=== PATIENT | male | born 1955 | race Two or more races ===

== ENCOUNTER 2022-07-17 08:29 | Inpatient (IN) | payer MEDICARE, OTHER ==
[~2022-07-17] VITALS: Ht 172.7 cm; Wt 81.7 kg
[2022-07-17] MEDS ORDERED: ASPirin 81 mg TAB PO ONE (09:15)
[2022-07-17] MEDS ORDERED: methylPREDNISolone SOD SUCC 125 MG/2 ML VL IV ONE (09:15)
[2022-07-17 09:35] LABS: Basophils # (auto) 0.1 10 ^3/uL (0-0.2); Basophils % (auto) 0.6 % (0.0-2.0); Eosinophils # (auto) 0.2 10 ^3/uL (0-0.8); Eosinophils % (auto) 2.1 % (0.0-7.0); Hematocrit 39.3 % (41.0-53.0); Lymphocytes # (auto) 1.4 10 ^3/uL (0.4-5.4); Lymphocytes % (auto) 12.9 % (10.0-50.0); Mean Corpuscular Hemoglobin 33.9 pg (28.0-32.0); Mean Corpuscular Hgb Conc. 35.5 g/dL (32.0-36.0); Mean Corpuscular Volume 95.3 fL (80.0-100.0); Monocytes # (auto) 0.9 10 ^3/uL (0-1.3); Monocytes % (auto) 8.1 % (0.0-12.0); Neutrophils # (auto) 8.1 10 ^3/uL (1.6-8.6); Neutrophils % (auto) 76.3 % (37.0-80.0); Red Blood Cells 4.12 10^6/uL (4.5-5.90); Red Cell Distribution Width 13.5 % (11.8-14.3); White Blood Cell 10.6 10^3/uL (4.4-10.8)
[2022-07-17 09:40] LABS: Urine Bacteria MOD /hpf (None Seen); Urine Budding Yeast MANY /hpf (None Seen); Urine Mucus FEW (None Seen); Urine WBC 1400 /hpf (0 - 3); Urine WBC Clumps PRESENT /hpf (None Seen)
[2022-07-17 09:42] LABS: Urine Blood 3+ /uL (Negative); Urine Specific Gravity 1.015 (1.001-1.035)
[2022-07-17 09:42] LABS: Albumin 3.2 g/dL (3.4-5.0); Calcium 9.6 mg/dL (8.5-10.1); Magnesium 2.1 mg/dL (1.6-2.6); Potassium 3.9 mmol/L (3.5-5.1)
[2022-07-17 09:44] LABS: Total Protein 7.3 g/dL (6.4-8.2)
[2022-07-17] MEDS ORDERED: cefTRIAXone 1GM/50ML D5W 50 ML IV ONE (10:15)
[2022-07-17] MEDS ORDERED: HYDROcodone-ACET 5/325MG TAB PO PRN (11:30)
[2022-07-17] MEDS ORDERED: MORPHINE SULFATE INJ 2 MG/ml SYRG IV PRN (11:30)
[2022-07-17] MEDS ORDERED: InsuLIN REG 1unit/0.01ml Soln (100units/ml) SC SCH (11:30)
[2022-07-17] MEDS ORDERED: DOCUSATE SOD 100 MG CAP PO PRN (11:30)
[2022-07-17] MEDS ORDERED: DEXTROSE (50%) 50ML SYRG IV PRN ×2 (11:30→14:45)
[2022-07-17] MEDS ORDERED: ACCU-CHEK COMFORT CURVE STRIP VI SCH (11:30)
[2022-07-17] MEDS ORDERED: NITROGLYCERIN 0.4 MG SL TAB SL PRN (11:30)
[2022-07-17] MEDS ORDERED: ONDANSETRON HCL 4 MG/2 ML VIAL IV PRN (11:30)
[2022-07-17] MEDS ORDERED: ALBUTEROL SULF 2.5 MG/0.5ML(0.5%) NEB SOLN NEB PRN (12:45)
[2022-07-17] MEDS ORDERED: IPRATROPIUM BROM 0.5 MG/2.5ML INH SOL NEB PRN (12:45)
[2022-07-17] MEDS ORDERED: IOHEXOL 350 MG/ML 100ML IJ ONE (14:41)
[2022-07-17] MEDS: ACCU-CHEK COMFORT CURVE STRIP VI SCH ×2 (20:11→22:00)
[2022-07-17] MEDS: methylPREDNISolone SOD SUCC 125 MG/2 ML VL IV SCH ×2 (20:24→22:00)
[2022-07-17] MEDS: InsuLIN REG 1unit/0.01ml Soln (100units/ml) SC SCH ×2 (20:24→22:00)
[2022-07-17] MEDS: ENOXAPARIN SOD 100 MG/1 ML SYRINGE SC SCH (23:02)
[2022-07-18] VITALS (8 sets, daily range): BP systolic 103–130; BP diastolic 67–90
[2022-07-18] MEDS ORDERED: AMIODARONE HCL (50 MG/ ML) 3 ML VIAL IV ONE (02:14)
[2022-07-18] MEDS ORDERED: MIDAZOLAM HCL 2MG/2ML 2ml VIAL (1mg/ml) ONE ×2 (02:14→19:26)
[2022-07-18] MEDS ORDERED: AMIODARONE HCL 150 MG in D5W 5% 100 ML IV ONE (02:15)
[2022-07-18] MEDS ORDERED: MAGNESIUM SULFATE 1GM/100ML 200 ML IV ONE (02:18)
[2022-07-18] MEDS ORDERED: MIDAZOLAM HCL 2MG/2ML 2ml VIAL (1mg/ml) IV PRN (02:30)
[2022-07-18] MEDS ORDERED: AMIODARONE 450mg/250ml AE 250 ML IV SCH ×2 (02:30→08:30)
[2022-07-18 05:13] LABS: Basophils # (auto) 0 10 ^3/uL (0-0.2); Basophils % (auto) 0.1 % (0.0-2.0); Eosinophils # (auto) 0 10 ^3/uL (0-0.8); Hematocrit 35.7 % (41.0-53.0); Hemoglobin 12.5 g/dL (13.5-17.5); Lymphocytes # (auto) 0.4 10 ^3/uL (0.4-5.4); Lymphocytes % (auto) 8.7 % (10.0-50.0); Mean Corpuscular Hemoglobin 33.2 pg (28.0-32.0); Mean Corpuscular Volume 94.8 fL (80.0-100.0); Monocytes # (auto) 0.1 10 ^3/uL (0-1.3); Monocytes % (auto) 1.7 % (0.0-12.0); Neutrophils # (auto) 4.3 10 ^3/uL (1.6-8.6); Neutrophils % (auto) 89.5 % (37.0-80.0); Nucleated Red Blood Cells % 0.1 %; Red Blood Cells 3.76 10^6/uL (4.5-5.90); Red Cell Distribution Width 13.5 % (11.8-14.3); White Blood Cell 4.8 10^3/uL (4.4-10.8)
[2022-07-18 05:31] LABS: Albumin 2.9 g/dL (3.4-5.0); Calcium 9.4 mg/dL (8.5-10.1); Potassium 3.9 mmol/L (3.5-5.1)
[2022-07-18 05:33] LABS: BUN/Creatinine Ratio 21.6
[2022-07-18 05:35] LABS: Bilirubin, Total 0.8 mg/dL (0.2-1.0); Total Protein 7.2 g/dL (6.4-8.2)
[2022-07-18] MEDS: MAGNESIUM SULFATE 1GM/100ML 100 ML IV SCH (07:01)
[2022-07-18] MEDS: InsuLIN REG 1unit/0.01ml Soln (100units/ml) SC SCH ×4 (07:09→21:59)
[2022-07-18] MEDS: methylPREDNISolone SOD SUCC 125 MG/2 ML VL IV SCH ×2 (07:10→15:00)
[2022-07-18] MEDS: ACCU-CHEK COMFORT CURVE STRIP VI SCH ×4 (07:11→21:59)
[2022-07-18] MEDS ORDERED: AMIODARONE HCL 200 MG TAB PO ONE (09:15)
[2022-07-18] MEDS ORDERED: ADENOSINE 82 MG in GIVE UN-DILUTED 0 ML IV ONE (09:45)
[2022-07-18] MEDS ORDERED: METOPROLOL SUCCINATE XL 50 MG TAB PO ONE (10:30)
[2022-07-18] MEDS: ENOXAPARIN SOD 100 MG/1 ML SYRINGE SC SCH ×2 (11:00→12:16)
[2022-07-18] MEDS: cefTRIAXone 1GM/50ML D5W 50 ML IV SCH ×2 (11:00→12:16)
[2022-07-18] MEDS: ASPirin 81 mg TAB PO SCH (12:21)
[2022-07-18 13:42] LABS: Free T4 (Free Thyroxine) 1.13 ng/dL (0.89-1.76); T3 Total 0.68 ng/mL (0.60-1.81)
[2022-07-18 15:35] LABS: Cholesterol 233 mg/dL (< 200); HDL Cholesterol 41 mg/dL (40-59); LDL Cholesterol 180 mg/dL (< 100); Triglycerides 85 mg/dL (< 150)
[2022-07-18] MEDS: FUROSEMIDE 20 MG/2 ML VIAL IV SCH (16:36)
[2022-07-18] MEDS: TAMSULOSIN HYDROCHLORIDE 0.4 MG CAP PO SCH (18:00)
[2022-07-18] MEDS ORDERED: LIDOCAINE 2%HCL (LOCAL ANESTH.) INJ 10ml MDV ONE (19:21)
[2022-07-18] MEDS ORDERED: IODIXANOL 320MG/ML 100ML BTL IV ONE (19:21)
[2022-07-18] MEDS ORDERED: HEPARIN SODIUM (PORCINE) 5000 UNITS/ML 1ML VIAL ONE (19:26)
[2022-07-18] MEDS ORDERED: VERAPAMIL 2.5MG/ML INJ 2ML VIAL IV ONE (19:26)
[2022-07-18] MEDS ORDERED: fentaNYL CITRATE 100 MCG/2 ML VL ONE (19:26)
[2022-07-18] MEDS ORDERED: ANGIOMAX 250 MG VIAL IV ONE (19:26)
[2022-07-18] MEDS ORDERED: SODIUM CHL 0.9% 50 ML ONE (19:27)
[2022-07-18] MEDS ORDERED: TICAGRELOR 90 MG TAB ONE (20:08)
[2022-07-18] MEDS ORDERED: SODIUM CHLORIDE 0.9% 1,000 ML IV SCH (20:30)
[2022-07-18] MEDS: AMIODARONE HCL 200 MG TAB PO SCH (21:51)
[2022-07-18] MEDS: DOXYCYCLINE 100 MG TAB/CAP PO SCH (21:58)
[2022-07-18] MEDS ORDERED: ATORVASTATIN 20 MG TAB PO SCH (22:00)
[2022-07-18] MEDS: SODIUM CHLOR 0.9% PF (SALINE LOCK) 10ML VIAL/SYR IV SCH (22:17)
[2022-07-18 22:41] LABS: INR 1.36 (0.9-1.15)
[2022-07-18 22:54] LABS: Partial Thromboplastin Time 78.7 sec (24.6-33.4)
[2022-07-19 05:00] VITALS: BP 111/59
[2022-07-19 05:32] LABS: Basophils # (auto) 0 10 ^3/uL (0-0.2); Basophils % (auto) 0.1 % (0.0-2.0); Eosinophils # (auto) 0 10 ^3/uL (0-0.8); Hemoglobin 11.4 g/dL (13.5-17.5); Lymphocytes # (auto) 0.6 10 ^3/uL (0.4-5.4); Lymphocytes % (auto) 3.9 % (10.0-50.0); Mean Corpuscular Hemoglobin 32.8 pg (28.0-32.0); Mean Corpuscular Hgb Conc. 34.5 g/dL (32.0-36.0); Mean Corpuscular Volume 95.1 fL (80.0-100.0); Monocytes # (auto) 0.7 10 ^3/uL (0-1.3); Monocytes % (auto) 4.7 % (0.0-12.0); Neutrophils % (auto) 91.3 % (37.0-80.0); Red Blood Cells 3.47 10^6/uL (4.5-5.90); Red Cell Distribution Width 13.7 % (11.8-14.3); White Blood Cell 14.2 10^3/uL (4.4-10.8)
[2022-07-19] MEDS: SODIUM CHLOR 0.9% PF (SALINE LOCK) 10ML VIAL/SYR IV SCH ×3 (05:37→23:07)
[2022-07-19 05:45] LABS: INR 1.01 (0.9-1.15); Partial Thromboplastin Time 28.7 sec (24.6-33.4)
[2022-07-19 05:48] LABS: Potassium 3.7 mmol/L (3.5-5.1)
[2022-07-19 05:58] LABS: BUN/Creatinine Ratio 26.1; Calcium 9.5 mg/dL (8.5-10.1)
[2022-07-19] MEDS: InsuLIN REG 1unit/0.01ml Soln (100units/ml) SC SCH ×4 (06:12→21:39)
[2022-07-19] MEDS: ACCU-CHEK COMFORT CURVE STRIP VI SCH ×4 (06:24→21:36)
[2022-07-19 09:00] VITALS: BP 129/72
[2022-07-19] MEDS: DOXYCYCLINE 100 MG TAB/CAP PO SCH ×2 (09:13→21:51)
[2022-07-19] MEDS: ASPirin 81 mg TAB PO SCH (09:13)
[2022-07-19] MEDS: AMIODARONE HCL 200 MG TAB PO SCH ×2 (09:13→21:52)
[2022-07-19] MEDS: METOPROLOL SUCCINATE XL 50 MG TAB PO SCH (09:15)
[2022-07-19] MEDS: FUROSEMIDE 20 MG/2 ML VIAL IV SCH (09:16)
[2022-07-19] MEDS: TICAGRELOR 90 MG TAB PO SCH ×2 (09:16→21:51)
[2022-07-19] MEDS: cefTRIAXone 1GM/50ML D5W 50 ML IV SCH (09:16)
[2022-07-19] MEDS ORDERED: ERGOCALCIFEROL 50,000 UNIT(1.25MG) CAP PO SCH (10:00)
[2022-07-19] MEDS ORDERED: ENOXAPARIN SOD 100 MG/1 ML SYRINGE SC SCH (10:00)
[2022-07-19 13:00] VITALS: BP 115/74
[2022-07-19] MEDS ORDERED: ERTAPENEM SOD INJ 1 GM in SODIUM CHL 0.9% 50 ML IV ONE (13:00)
[2022-07-19 16:37] VITALS: BP 125/82
[2022-07-19] MEDS: TAMSULOSIN HYDROCHLORIDE 0.4 MG CAP PO SCH (17:57)
[2022-07-19] MEDS: APIXABAN 5 MG TAB PO SCH (21:51)
[2022-07-19 22:00] VITALS: BP 108/58
[2022-07-20 05:00] VITALS: BP 116/65
[2022-07-20] MEDS: SODIUM CHLOR 0.9% PF (SALINE LOCK) 10ML VIAL/SYR IV SCH ×2 (06:13→14:39)
[2022-07-20] MEDS: ACCU-CHEK COMFORT CURVE STRIP VI SCH ×3 (06:13→18:07)
[2022-07-20 06:15] LABS: Basophils # (auto) 0 10 ^3/uL (0-0.2); Basophils % (auto) 0.2 % (0.0-2.0); Eosinophils # (auto) 0 10 ^3/uL (0-0.8); Eosinophils % (auto) 0.2 % (0.0-7.0); Hematocrit 34.6 % (41.0-53.0); Hemoglobin 12.3 g/dL (13.5-17.5); Lymphocytes # (auto) 1.3 10 ^3/uL (0.4-5.4); Lymphocytes % (auto) 14.3 % (10.0-50.0); Mean Corpuscular Hemoglobin 34.2 pg (28.0-32.0); Mean Corpuscular Hgb Conc. 35.4 g/dL (32.0-36.0); Mean Corpuscular Volume 96.6 fL (80.0-100.0); Monocytes # (auto) 0.8 10 ^3/uL (0-1.3); Monocytes % (auto) 9.2 % (0.0-12.0); Neutrophils # (auto) 6.8 10 ^3/uL (1.6-8.6); Neutrophils % (auto) 76.1 % (37.0-80.0); Red Blood Cells 3.58 10^6/uL (4.5-5.90); Red Cell Distribution Width 13.7 % (11.8-14.3); White Blood Cell 8.9 10^3/uL (4.4-10.8)
[2022-07-20] MEDS: InsuLIN REG 1unit/0.01ml Soln (100units/ml) SC SCH ×3 (06:23→17:00)
[2022-07-20 06:34] LABS: BUN/Creatinine Ratio 29.5; Calcium 9.1 mg/dL (8.5-10.1); Potassium 3.7 mmol/L (3.5-5.1)
[2022-07-20 09:00] VITALS: BP 114/53
[2022-07-20] MEDS: cefTRIAXone 1GM/50ML D5W 50 ML IV SCH (09:45)
[2022-07-20] MEDS: APIXABAN 5 MG TAB PO SCH (09:46)
[2022-07-20] MEDS: DOXYCYCLINE 100 MG TAB/CAP PO SCH (09:46)
[2022-07-20] MEDS: TICAGRELOR 90 MG TAB PO SCH (09:46)
[2022-07-20] MEDS: AMIODARONE HCL 200 MG TAB PO SCH (09:46)
[2022-07-20] MEDS: ASPirin 81 mg TAB PO SCH (09:46)
[2022-07-20] MEDS: METOPROLOL SUCCINATE XL 50 MG TAB PO SCH (09:47)
[2022-07-20] MEDS: FUROSEMIDE 20 MG/2 ML VIAL IV SCH (09:48)
[2022-07-20] MEDS ORDERED: ERTAPENEM SOD INJ 1 GM in SODIUM CHL 0.9% 50 ML IV SCH (10:00)
[2022-07-20 13:00] VITALS: BP 108/62
== END 2022-07-20 18:00 | disposition short-term general hospital (02) | DRG 246 ==
LOC: ER 08:29 → TELE 11:25 → TELE-EAST 07-18 10:19
PROVIDERS: ADMIT Nurse Practitioner Family; ATTEND Internal Medicine
PROC: 5A2204Z Restoration of Cardiac Rhythm, Single (ICD-10-PCS; 2022-07-17)
PROC: 027034Z Dilation of Coronary Artery, One Artery with Drug-eluting Intraluminal Device, Percutaneous Approach (ICD-10-PCS; principal; 2022-07-18)
PROC: 4A023N7 Measurement of Cardiac Sampling and Pressure, Left Heart, Percutaneous Approach (ICD-10-PCS; 2022-07-18)
PROC: B211YZZ Fluoroscopy of Multiple Coronary Arteries using Other Contrast (ICD-10-PCS; 2022-07-18)
PROC: B215YZZ Fluoroscopy of Left Heart using Other Contrast (ICD-10-PCS; 2022-07-18)
PROC: 4A033BC Measurement of Arterial Pressure, Coronary, Percutaneous Approach (ICD-10-PCS; 2022-07-18)
DX: I11.0 Hypertensive heart disease with heart failure (principal); I50.41 Acute combined systolic (congestive) and diastolic (congestive) heart failure; J96.00 Acute respiratory failure, unspecified whether with hypoxia or hypercapnia; I47.20 Ventricular tachycardia, unspecified; J45.901 Unspecified asthma with (acute) exacerbation; N13.6 Pyonephrosis; Z16.12 Extended spectrum beta lactamase (ESBL) resistance; E04.1 Nontoxic single thyroid nodule; E11.9 Type 2 diabetes mellitus without complications; R91.1 Solitary pulmonary nodule; Z20.822 Contact with and (suspected) exposure to COVID-19; I25.10 Atherosclerotic heart disease of native coronary artery without angina pectoris; E66.9 Obesity, unspecified; B96.20 Unspecified Escherichia coli [E. coli] as the cause of diseases classified elsewhere; E78.5 Hyperlipidemia, unspecified; I48.91 Unspecified atrial fibrillation; Z83.3 Family history of diabetes mellitus; Z87.440 Personal history of urinary (tract) infections; Z87.891 Personal history of nicotine dependence; Z68.27 Body mass index [BMI] 27.0-27.9, adult
CPT/HCPCS: 36415; 71046; 71275; 76536; 76775; 78452; 80048; 80053; 80061; 81001; 82306; 82962; 83036; 83605; 83735; 83880; 84154; 84439; 84443; 84480; 84484; 85025; 85379; 85610; 85730; 87040; 87086; 87088; 87186; 87426; 93005; 93017; 93306; 99152; 99153; C1874; G0378; J0153; J0696; J1335; J1815; J2001; J2250; J2405; J7060; Q9967

== ENCOUNTER 2022-10-17 14:27 | Emergency (ER) | payer MEDICARE, OTHER ==
[~2022-10-17] VITALS: Ht 172.7 cm; Wt 89.7 kg
[2022-10-17 16:03] LABS: Urine Bacteria FEW /hpf (None Seen); Urine Blood 1+ /uL (Negative); Urine Mucus FEW (None Seen); Urine Specific Gravity 1.015 (1.001-1.035); Urine WBC 42 /hpf (0 - 3)
[2022-10-17 16:06] LABS: BUN/Creatinine Ratio 17.3; Calcium 9.5 mg/dL (8.5-10.1); Potassium 3.3 mmol/L (3.5-5.1)
[2022-10-17 16:08] LABS: Bilirubin, Total 0.8 mg/dL (0.2-1.0); Total Protein 7.1 g/dL (6.4-8.2)
[2022-10-17 16:20] LABS: Hematocrit 45.9 % (41.0-53.0); Hemoglobin 15.6 g/dL (13.5-17.5); Mean Corpuscular Hemoglobin 32.9 pg (28.0-32.0); Mean Corpuscular Hgb Conc. 34.1 g/dL (32.0-36.0); Mean Corpuscular Volume 96.5 fL (80.0-100.0); Red Blood Cells 4.75 10^6/uL (4.5-5.90); Red Cell Distribution Width 13.3 % (11.8-14.3); White Blood Cell 10.9 10^3/uL (4.4-10.8)
[2022-10-17 16:23] LABS: Basophils % (manual) 0 (0.0-2.0); Blast Cells 0; Metamyelocytes % 0; Promyelocytes % 0; Reactive Lymphocytes 0
[2022-10-17 16:43] LABS: Band Neutrophils % (manual) 16; Eosinophils % (manual) 1 (0-7); Lymphocytes % (manual) 4 (10.0-50.0); Monocytes % (manual) 1 (0-12); Myelocytes % 1
[2022-10-17] MEDS ORDERED: POTASSIUM EFFERVESENT TAB 25 MEQ PO ONE (19:45)
[2022-10-17] MEDS ORDERED: LACTATED RINGER'S 1,000 ML IV ONE (20:00)
[2022-10-17 20:34] VITALS: BP 102/57
== END 2022-10-17 20:38 | disposition home or self-care (01) ==
LOC: ER 14:33
DX: R00.2 Palpitations (principal); M79.605 Pain in left leg; M79.604 Pain in right leg; M54.50 Low back pain, unspecified; R07.89 Other chest pain; I10 Essential (primary) hypertension; I25.10 Atherosclerotic heart disease of native coronary artery without angina pectoris; E11.9 Type 2 diabetes mellitus without complications; E78.5 Hyperlipidemia, unspecified
CPT/HCPCS: 36415; 71045; 80053; 81001; 83880; 84484; 85007; 85027; 93005; 96360; 99285; J7120

== ENCOUNTER 2023-08-10 06:18 | Day surgery (SDC) | payer OTHER, MEDICAID ==
[~2023-08-10] VITALS: Ht 172.7 cm; Wt 89.8 kg
[2023-08-10] MEDS ORDERED: fentaNYL CITRATE 100 MCG/2 ML VL IV STA (07:43)
[2023-08-10] MEDS ORDERED: LIDOCAINE VISCOUS 2% 15ML UD MT PRN (07:45)
[2023-08-10] MEDS ORDERED: FLUMAZENIL 0.1 MG/ML INJ 10ML MDV IV ONE (07:45)
[2023-08-10] MEDS ORDERED: NALOXONE HCL 0.4 MG/ML VIAL IV ONE (07:45)
[2023-08-10] MEDS ORDERED: diphenhdrAMINE HCL 50 MG/1 ML VL IV ONE (07:45)
[2023-08-10] MEDS ORDERED: MIDAZOLAM HCL 2MG/2ML 2ml VIAL (1mg/ml) IV ONE (07:45)
[2023-08-10 08:12] LABS: Basophils # (auto) 0 10 ^3/uL (0-0.2); Eosinophils # (auto) 0.2 10 ^3/uL (0-0.8); Eosinophils % (auto) 3.8 % (0.0-7.0); Lymphocytes # (auto) 1.1 10 ^3/uL (0.4-5.4); Mean Corpuscular Hemoglobin 34.3 pg (28.0-32.0); Monocytes # (auto) 0.6 10 ^3/uL (0-1.3); Nucleated Red Blood Cells % 0.2 %
[2023-08-10 08:14] LABS: Basophils % (auto) 0.6 % (0.0-2.0); Hematocrit 47.1 % (41.0-53.0); Lymphocytes % (auto) 18.4 % (10.0-50.0); Mean Corpuscular Hgb Conc. 33.9 g/dL (32.0-36.0); Mean Corpuscular Volume 101.2 fL (80.0-100.0); Monocytes % (auto) 10.5 % (0.0-12.0); Neutrophils # (auto) 3.9 10 ^3/uL (1.6-8.6); Neutrophils % (auto) 66.7 % (37.0-80.0); Red Blood Cells 4.65 10^6/uL (4.5-5.90); Red Cell Distribution Width 13.7 % (11.8-14.3); White Blood Cell 5.9 10^3/uL (4.4-10.8)
[2023-08-10 08:26] LABS: INR 1.04 (0.9-1.15); Partial Thromboplastin Time 30.9 SEC (24.5-34.5); Prothrombin Time 10.9 sec (9.3-11.8)
[2023-08-10 08:41] LABS: Chloride 105 mmol/L (98-107); Sodium 136 mmol/L (136-145)
[2023-08-10 08:42] LABS: Anion Gap 6 (5-15); Carbon Dioxide 25 mmol/L (20-30)
[2023-08-10 08:43] LABS: Calcium 9.9 mg/dL (8.5-10.1)
[2023-08-10 08:48] LABS: BUN/Creatinine Ratio 17.5 (10.0-20.0); Blood Urea Nitrogen 20 mg/dL (9-23); Glucose 109 mg/dL (74-106)
[2023-08-10 09:08] VITALS: BP 122/86; PULSE 61; RESP 12; O2SAT 98
[2023-08-10 09:23] VITALS: PULSE 57; RESP 12; O2SAT 97
[2023-08-10 09:35] VITALS: BP 114/71; PULSE 56; RESP 13; O2SAT 96
[2023-08-10 09:55] VITALS: BP 107/66; PULSE 56; RESP 13; O2SAT 91
[2023-08-10 10:10] VITALS: BP 113/70; PULSE 57; RESP 13; O2SAT 97
[2023-08-10 10:25] VITALS: BP 111/70; PULSE 56; RESP 14; O2SAT 98
== END 2023-08-10 10:57 | disposition home or self-care (01) ==
LOC: CATH 06:18
PROVIDERS: ATTEND Internal Medicine
DX: I48.91 Unspecified atrial fibrillation (principal); I08.0 Rheumatic disorders of both mitral and aortic valves
CPT/HCPCS: 36415; 80048; 85025; 85610; 85730; 92960; 93005; 93312; J1200; J2250; J3010; J7030; 99152

== ENCOUNTER 2024-03-09 17:14 | Emergency (ER) | payer MEDICAID, OTHER ==
[~2024-03-09] VITALS: Ht 172.7 cm; Wt 91.0 kg
[2024-03-09 17:35] VITALS: BP 122/94; PULSE 101; RESP 18; O2SAT 97
[2024-03-09 18:35] LABS: COVID19 ANTIGEN SOFIA FIA NEGATIVE (NEGATIVE); Rapid Influenza A Negative (Negative); Rapid Influenza B Negative (Negative)
[2024-03-09 21:19] VITALS: TEMP 98.5
[2024-03-09] MEDS ORDERED: ACET500T58 PO (21:22)
[2024-03-09] MEDS ORDERED: PRED20TA2 PO (21:22)
[2024-03-09] MEDS ORDERED: AZIT-43 PO (21:22)
== END 2024-03-09 21:40 | disposition home or self-care (01) ==
LOC: ER 17:14
DX: J20.9 Acute bronchitis, unspecified (principal); I25.10 Atherosclerotic heart disease of native coronary artery without angina pectoris; E11.9 Type 2 diabetes mellitus without complications; E78.5 Hyperlipidemia, unspecified; I10 Essential (primary) hypertension; Z20.822 Contact with and (suspected) exposure to COVID-19; Z98.61 Coronary angioplasty status
CPT/HCPCS: 36415; 71046; 82962; 87426; 87804

== ENCOUNTER 2025-06-20 12:36 | Emergency (ER) | payer MEDICARE, OTHER ==
[~2025-06-20] VITALS: Ht 170.2 cm; Wt 80.3 kg
[~2025-06-20 12:36] MED LIST: ACET500T58 PO; AZIT-43 PO; PRED20TA2 PO
--- NOTE | 2025-06-20 14:17 | ED.PDOC ---
Back pain HPI HPI Comments 70-YEAR-OLD MALE PRESENTS TO THE ER WITH A RIGHT-SIDED RIB PAIN FOLLOWING A FALL AT WORK. HE EXPERIENCES RIGHT-SIDED RIB PAIN THAT WORSENS WITH MOVEMENTS SUCH TURNING IN BED OR GETTING UP. THE PAIN BEGINS AFTER HE SLIPPED FROM A STEP AND FELL APPROXIMATELY 1 L AT WORK. INITIALLY, HE FELT VERY TIRED AND UNABLE TO STAND UP, BUT HIS CONDITION HAS NOT IMPROVED SINCE THEN. HAS NOT TAKEN ANY SPECIFIC MEDICATION FOR THE PAIN, ALTHOUGH HE HAS TRIED TYLENOL WITHOUT RELIEF. HE MENTIONS ON HAVING MEDICATIONS FOR DIABETES, PROSTATE ISSUES, AND HIS CONDITIONS, BUT DOES NOT SPECIFY THE NAMES OR DOSAGES. DENIES LOSS OF CONSCIOUSNESS OR VOMITING. NO HISTORY OF OSTEOPOROSIS. DENIES ANY OTHER SYMPTOMS AT THIS TIME. Chief Complaint: Fall Injury Time Seen by MD: 14:15 Primary Care Provider: JEFFREY Fernando Notes: Nurses Notes, Medications, Allergies Allergies: Coded Allergies: NO KNOWN ALLERGIES (Unverified , 07/17/22) Home Meds Active Scripts Acetaminophen (Acetaminophen) 500 Mg Tab, 500 MG PO Q4HPRN, #30 TAB 0 Refills Prov:PAUL PEREZ 03/09/24 Prednisone (Prednisone) 20 Mg Tab, 20 MG PO BID for 5 Days, #10 TAB 0 Refills Prov:PAUL PEREZ 03/09/24 Azithromycin (Azithromycin) 250 Mg Tab, 250 MG PO DAILY MDD 500 for 5 Days, #6 TAB 0 Refills 2 TABLETS ORALLY ON DAY ONE, THEN 1 TABLET ORALLY DAILY FOR 4 DAYS Prov:PAUL PEREZ 03/09/24 Information Source: Patient Mode of Arrival: Ambulatory Timing: Hours Duration: Since onset Severity: Moderate Prehospital treatment: None Quality: Aching Onset: Fall Circumstance: Work Related History of: None Associated signs and symptoms: None Past Medical History PAST MEDICAL HISTORY: CAD, DM, High Lipids, HTN Surgical History: Hernia Repair, PTCA Family History Family History: Reviewed,noncontributory to illness, Unknown Social History Smoker: Non-Smoker Alcohol: Denies ETOH Use Drugs: Denies Drug Use Lives In: Home Constitutional: denies: chills, diaphoresis, fatigue, fever, malaise, sweats, weakness, others EENTM: denies: blurred vision, double vision, ear bleeding, ear discharge, ear drainage, ear pain, ear ringing, eye pain, eye redness, hearing loss, mouth pain, mouth swelling, nasal discharge, nose bleeding, nose congestion, nose hakeem n, photophobia, tearing, throat pain, throat swelling, voice changes, others Respiratory: denies: cough, hemoptysis, orthopnea, SOB at rest, shortness of breath, SOB with excertion, stridor, wheezing, others Cardiovascular: denies: chest pain, dizzy spells, diaphoresis, Dyspnea on exertion, edema, irregular heart beat, left arm pain, lightheadedness, palpitations, PND, syncope, others Gastrointestinal: denies: abdomen distended, abdominal pain, blood streaked bowels, constipated, diarrhea, dysphagia, difficulty swallowing, hematemesis, melena, nausea, poor appetite, poor fluid intake, rectal bleeding, rectal pain, vomiting, others Genitourinary: denies: burning, dysuria, flank pain, frequency, hematuria, incontinence, penile discharge, penile sore, pain, testicle pain, testicle swelling, urgency, others Neurological: denies: dizziness, fainting, headache, left sided numbness, left sided weakness, numbness, paresthesia, pre-existing deficit, right sided numbness, right sided weakness, seizure, speech problems, tingling, tremors, weakness, others Musculoskeletal: reports: others (RIGHT-SIDED RIB PAIN S/P FALL); denies: back pain, gout, joint pain, joint swelling, muscle pain, muscle stiffness, neck pain Integumetry: denies: bruises, change in color, change in hair/nails, dryness, laceration, lesions, lumps, rash, wounds, others Allergic/Immunocompromised: denies: Difficulty Healing, Frequent Infections, Hives, Itching, others Hematologic/Lymphatic: denies: anemia, blood clots, easy bleeding, easy bruising, swollen glands, others Endocrine: denies: excessive hunger, excessive sweating, excessive thirst, excessive urination, flushing, intolerance to cold, intolerance to heat, unexplained weight gain, unexplained weight loss, others Psychiatric: denies: anxiety, bipolar disorder, depression, hopeless, panic disorder, schizophrenia, sleepless, suicidal, others All Other Systems: Reviewed and Negative Physical Exam Exam Comments R RIB: NO CONTUSION General Appearance: No Apparent Distress, Normal HEENT: Normal ENT Inspection, Pharynx Normal, TMs Normal Neck: Full Range of Motion, Non-Tender, Normal, Normal Inspection Respiratory: Chest Non-Tender, Lungs Clear, No Accessory Muscle Use, No Respiratory Distress, Normal Breath Sounds Cardiovascular: No Edema, No JVD, No Murmur, No Gallop, Normal Peripheral Pulses, Regular Rate/Rhythm Breast Exam: Deferred Gastrointestinal: No Organomegaly, Non Tender, No Pulsatile Mass, Normal Bowel Sounds, Soft Genitalia: Deferred Pelvic: Deferred Rectal: Deferred Extremities: No calf tenderness, Normal capillary refill, Normal inspection, Normal range of motion, Non-tender, No pedal edema Musculoskeletal : Apperance: Normal Neurologic: Alert, culinary specialist II-XII nml as Tested, No Motor Deficits, Normal Affect, Normal Mood, No Sensory Deficits Cerebellar Function: Normal Reflexes: Normal Skin: Dry, Normal Color, Warm Lymphatic: No Adenopathy Was a procedure done? Was a procedure done?: No Back Pain Differential Dx Differential Diagnosis: Fracture, Musculoskeletal Pain X-Ray, Labs, Meds, VS Vital Signs Date Time Temp Pulse Resp B/P (MAP) Pulse Ox O2 Delivery O2 Flow Rate FiO2 06/20/25 15:38 97.8 100 16 134/94 (107) 99 97.8 06/20/25 13:00 96 16 96 Room Air 06/20/25 13:00 98.3 96 16 141/87 (105) 96 98.3 06/20/25 12:38 98.0 103 16 160/84 97 98.0 X-Ray, Labs, Meds, VS Comment 70-YEAR-OLD MALE PRESENTS TO THE ER WITH A RIGHT-SIDED RIB PAIN FOLLOWING A FALL AT WORK. PATIENT ARRIVES ALERT AND ORIENTED, ABC'S INTACT, AFEBRILE, VITAL SIGNS STABLE, SATURATING WELL IN ROOM AIR DIAGNOSTIC IMAGING ORDERED BY ME AND RESULTS INTERPRETED BY RADIOLOGY : RIGHT- SIDED RIB X-RAY RESULTS NEG DISPOSITION: DISCHARGE. STRICT RETURN PRECAUTIONS DISCUSSED WITH THE PATIENT WITH FULL UNDERSTANDING. SUPPORTIVE CARE ADVISED (REST, ICE, HEAT, NSAIDS, STRETCHING EXERCISES) MASSAGE MUSCLES WITH COLD PACK OR ICE FOR 20 MINUTES 4 TIMES PER DAY. USUALLY MOST USEFUL IF THERE IS SWELLING DURING THE FIRST 48 HOURS HEATING PAD ON THE MOST PAINFUL AREA FOR 20 MINUTES TO RELIEVE MUSCLE SPASM SLEEP AND THE MOST COMFORTABLE SLEEPING POSITION (USUALLY ON THE SIDE WITH KNEES BENT) LIGHT STRETCHING, NO STRENUOUS ACTIVITY, AVOID FREQUENT BENDING, AVOID CARRYING HEAVY OBJECTS RETURN PRECAUTIONS DISCUSSED INCLUDING ANY WORSENING SYMPTOMS ADDITIONAL MDM REVIEW OF EXTERNAL, NON-ED RECORDS: EXTERNAL RECORDS REVIEWED. DISCUSSION WITH INDEPENDENT HISTORIAN (EMS, FAMILY) HISTORY OBTAINED FROM THE PATIENT/PARENTS (IF APPLICABLE) AT BEDSIDE CHRONIC CONDITIONS AFFECTING CARE: NONE SOCIAL DETERMINANTS OF HEALTH AFFECTING CARE: NONE CONSIDERATION OF ADMISSION (OBSERVATION OR ADMISSION): I CONSIDERED ESCALATION OF CARE TO ADMISSION FOR THIS PATIENT, HOWEVER GIVEN THE REASSURING WORKUP, THE PATIENT IS SAFE FOR OUTPATIENT MANAGEMENT. DISCUSSION WITH THE RADIOLOGY: NO TESTS CONSIDERED BUT NOT PERFORMED: PRESCRIPTION MEDICATION CONSIDERED BUT NOT GIVEN: 12 LEAD EKG INTERPRETATION: Time of 1ST Reevaluation: 14:45 Reevaluation 1ST: Improved Patient Education/Counseling: Diagnosis, Treatment, Prognosis Family Education/Counseling: No Family Present SEPSIS Sepsis Screen Date sepsis recognized/suspect: Jun 20, 2025 Time Sepsis recognized/suspect: 1238 Recent Procedure: No On Antibiotic Therapy: No Respiratory Rate >20: No Heart Rate >90: Yes Temp<36 C (96.8 F) or >38.3 C: No SBP <90 or MAP <65 mmHG: No New Acute Mental Status Change: No Is the patient on CPAP, BIPAP,: No Physician Orders R Rib Xray (06/20/25 13:51) Vital Signs Date Time Temp Pulse Resp B/P (MAP) Pulse Ox O2 Delivery O2 Flow Rate FiO2 06/20/25 15:38 97.8 100 16 134/94 (107) 99 97.8 06/20/25 13:00 96 16 96 Room Air 06/20/25 13:00 98.3 96 16 141/87 (105) 96 98.3 06/20/25 12:38 98.0 103 16 160/84 97 98.0 Departure 1 Departure Time of Disposition: 15:09 Impression: Primary Impression: Rib pain Disposition: 01 HOME / SELF CARE / HOMELESS Condition: Stable Additional Instructions: Discharge Note: Continue on your medications. Do not drive when taking narcotics. Drink plenty of fluids. Follow up with your primary Dr. Take your prescriptions as ordered. If your condition becomes worse call and follow up with your primary Dr. for instructions or return to the ER if needed. Thank you for visiting [facility]. Discharged With: Self Critical Care Note Critical Care Time?: No Stability Stability form required: No Heart Score Heart Score: Heart Score Response (Comments) Value History N/A 0 EKG N/A 0 Age N/A 0 Risk Factors N/A 0 Troponin N/A 0 Total 0 I personally scribed for YONATHAN NAVAS NP ([email or web address]) on 06/20/25 at 14:16. Electronically submitted by Sj Jaimes ([email or web address]). YONATHAN NAVAS NP Jun 20, 2025 14:16
--- NOTE | 2025-06-20 14:30 | DVH ---
EXAMINATION: XY R RIB XRAY INDICATION: r/o fracture s/p fall COMPARISON: CR CHEST 2 VIEW on DOS: 06/07/24, XY CHEST TWO VIEWS ROUTINE on DOS: 03/09/24, CHEST XRAY 1 VIEW on DOS: 10/17/22, CXR1 on DOS: 10/17/22, CHEST TWO VIEWS ROUTINE on DOS: 07/17/22 TECHNIQUE: Frontal view of the chest and 4 views of the right ribs history FINDINGS: No focal consolidation, pleural effusion or significant pneumothorax. Normal cardiomediastinal silhou ette. No displaced right rib fracture. IMPRESSION: No acute cardiopulmonary disease.
[2025-06-20 15:38] VITALS: BP 134/94; PULSE 100; RESP 16; TEMP 97.8; O2SAT 99
== END 2025-06-20 15:40 | disposition home or self-care (01) ==
LOC: ER 12:36
DX: R07.89 Other chest pain (principal); I10 Essential (primary) hypertension; E11.9 Type 2 diabetes mellitus without complications; E78.5 Hyperlipidemia, unspecified; Z98.890 Other specified postprocedural states; W01.0XXA Fall on same level from slipping, tripping and stumbling without subsequent striking against object, initial encounter; Y93.89 Activity, other specified; Y92.89 Other specified places as the place of occurrence of the external cause; Y99.8 Other external cause status
CPT/HCPCS: 71101